=== PATIENT | female | born 1995 | race American Indian/Alaskan Native ===

== ENCOUNTER 2020-01-02 21:34 | Emergency (ER) | payer SELFPAY ==
--- NOTE | 2020-01-02 22:08 | Event Note ---
ED Screening Note ED Screening Note: n/v that began two days ago unable to tolerate PO intake states she has abd pain LNMP: august 2020 has not seen anyone for this small amount of vaginal spotting PMHx asthma allergy: none /P:2/A:0 This initial assessment/diagnostic orders/clinical plan/treatment(s) is/are subject to change based on patients health status, clinical progression and re- assessment by fellow clinical providers in the ED. Further treatment and workup at subsequent clinical providers discretion. Patient/guardian urged not to elope from the ED as their condition may be serious if not clinically assessed and managed. Initial orders include: labs, UA, US
[2020-01-02 23:39] LABS: Bilirubin,Urine NEG (Negative); Blood,Urine NEG (Negative); Color,Urine Yellow (Yellow); Mucus,Urine 2+ /HPF; Protein,Urine <15 mg/dL mg/dL (Negative)
[2020-01-02 23:43] LABS: Basophils # (Auto) 0.1 K/mm3 (0.0-0.1); Basophils % (Auto) 0.6 % (0.0-1.8); Eosinophils # (Auto) 0.1 K/mm3 (0.0-0.4); Hematocrit 32.6 % (30.3-42.9); Hemoglobin 11.5 gm/dl (10.1-14.3); Lymphocytes % (Auto) 31.5 % (13.4-35.0); Mean Corpuscular HGB Conc 35 % (30-34); Mean Corpuscular Volume 88 fl (79-97); Monocytes # (Auto) 0.5 K/mm3 (0.0-0.8); Monocytes % (Auto) 5.1 % (0.0-7.3); Platelet Count 242 K/mm3 (140-440); Red Blood Count 3.71 M/mm3 (3.65-5.03); Red Cell Distribution Width 13.6 % (13.2-15.2)
[2020-01-03 00:06] LABS: Alanine Aminotransferase 11 units/L (7-56); Albumin 3.8 g/dL (3.9-5); BUN/Creatinine Ratio 15; Blood Urea Nitrogen 6 mg/dL (7-17); Calcium 9.3 mg/dL (8.4-10.2); Hemolysis Index 6
[2020-01-03] MEDS ORDERED: ONDANSETRON 4 MG/2 ML INJ IV ONE (00:29)
[2020-01-03] MEDS ORDERED: FAMOTIDINE 20 MG/2 ML INJ IV ONE (00:29)
[2020-01-03] MEDS ORDERED: ACETAMINOPHEN 500 MG TAB PO ONE (00:29)
[2020-01-03] MEDS ORDERED: SODIUM CHLORIDE 0.9% 1000 ML 1,000 ML IV ONE (00:29)
[2020-01-03 01:20] VITALS: BP 111/74
--- NOTE | 2020-01-03 03:15 | Emergency Department Report ---
ED N/V/D HPI - General Chief complaint: Abdominal Pain Stated complaint: N/V Time Seen by Provider: 01/02/20 22:06 Source: patient, EMS Mode of arrival: Ambulatory Limitations: No Limitations - History of Present Illness Initial comments: Patient is a A0 24-year-old -[place] female who is approximately 13 weeks gestation and who presents to the ED with complaint of acute onset intractable nausea and vomiting for the last 3 days. Patient states that she has not been able to keep anything down because of persistent nausea and vomiting. Patient also complains of mild diffuse abdominal pain. Patient denies fever, chills, cough, chest pain, sore throat, dizziness, syncope, lightheadedness, dysuria, urinary frequency and urgency, vaginal bleeding, vaginal discharge, diarrhea, low back pain or headache. Patient states that she try to drink water or david july but none of these stayed in. MD complaint: nausea, vomiting -: Sudden, days(s) (3) Description of Vomiting: food contents, watery Description of Diarrhea: other (None) Associated Abdominal Pain: Yes (Mildly epigastric) Location: epigastric Radiation: none Severity: severe Pain Scale: 7 Quality: aching, dull Consistency: intermittent Improves with: none Worsens with: eating, vomiting Context: other () Associated Symptoms: denies other symptoms, myalgias, loss of appetite, malaise, nausea/vomiting. denies: chest pain, cough, diaphoresis, fever/chills, headaches, rash, dysuria, shortness of breath, syncope, weakness - Related Data Previous Rx's Medication Instructions Recorded Last Taken Type Acetaminophen [Mapap] 500 mg PO Q6H PRN #30 tablet 01/03/20 Unknown Rx Famotidine [Pepcid] 20 mg PO Q12H #30 tablet 01/03/20 Unknown Rx Promethazine [Phenergan SUPPOS] 25 mg NC Q6HR PRN #15 supp.rect 01/03/20 Unknown Rx Promethazine [Phenergan] 25 mg PO Q6HR PRN #30 tab 01/03/20 Unknown Rx Allergies Allergy/AdvReac Type Severity Reaction Status Date / Time No Known Allergies Allergy Verified 01/02/20 21:50 ED Review of Systems ROS: Stated complaint: N/V Other details as noted in HPI Constitutional: denies: chills, fever Eyes: denies: eye pain, eye discharge, vision change ENT: denies: ear pain, throat pain Respiratory: denies: cough, shortness of breath, wheezing Cardiovascular: denies: chest pain, palpitations Endocrine: no symptoms reported Gastrointestinal: nausea, vomiting. denies: abdominal pain, diarrhea Genitourinary: denies: urgency, dysuria, discharge Musculoskeletal: denies: back pain, joint swelling, arthralgia Skin: denies: rash, lesions Neurological: denies: headache, weakness, paresthesias Psychiatric: denies: anxiety, depression Hematological/Lymphatic: denies: easy bleeding, easy bruising ED Past Medical Hx - Past Medical History Previous Medical History?: No - Surgical History Past Surgical History?: No - Social History Smoking Status: Never Smoker Substance Use Type: None - Medications Home Medications: Home Medications Medication Instructions Recorded Confirmed Last Taken Type Acetaminophen [Mapap] 500 mg PO Q6H PRN #30 tablet 01/03/20 Unknown Rx Famotidine [Pepcid] 20 mg PO Q12H #30 tablet 01/03/20 Unknown Rx Promethazine [Phenergan SUPPOS] 25 mg NC Q6HR PRN #15 supp.rect 01/03/20 Unknown Rx Promethazine [Phenergan] 25 mg PO Q6HR PRN #30 tab 01/03/20 Unknown Rx ED Physical Exam - General Limitations: No Limitations General appearance: alert, in no apparent distress - Head Head exam: Present: atraumatic, normocephalic, normal inspection - Eye Eye exam: Present: normal appearance, PERRL, EOMI Pupils: Present: normal accommodation - ENT ENT exam: Present: normal exam, normal orophraynx, mucous membranes moist, TM's normal bilaterally, normal external ear exam - Neck Neck exam: Present: normal inspection, full ROM. Absent: tenderness - Respiratory Respiratory exam: Present: normal lung sounds bilaterally. Absent: respiratory distress, wheezes, rhonchi, chest wall tenderness, accessory muscle use, decreased breath sounds, prolonged expiratory - Cardiovascular Cardiovascular Exam: Present: regular rate, normal rhythm, normal heart sounds. Absent: systolic murmur, diastolic murmur, rubs, gallop - GI/Abdominal GI/Abdominal exam: Present: soft, normal bowel sounds. Absent: tenderness, guarding, hyperactive bowel sounds, hypoactive bowel sounds - Extremities Exam Extremities exam: Present: normal inspection, full ROM, normal capillary refill - Back Exam Back exam: Present: normal inspection, full ROM. Absent: tenderness, CVA tenderness (L), muscle spasm - Neurological Exam Neurological exam: Present: alert, oriented X3, CN II-XII intact, normal gait, reflexes normal - Psychiatric Psychiatric exam: Present: normal affect, normal mood - Skin Skin exam: Present: warm, dry, intact, normal color. Absent: rash ED Course Vital Signs 01/02/20 01/02/20 01/03/20 21:54 22:12 00:39 Temperature 98.8 F 98.8 F Pulse Rate 90 95 H Respiratory 18 18 18 Rate Blood Pressure 118/84 118/84 Blood Pressure [Left] O2 Sat by Pulse 100 100 Oximetry 01/03/20 01:19 Temperature 97.8 F Pulse Rate 78 Respiratory 18 Rate Blood Pressure Blood Pressure 111/74 [Left] O2 Sat by Pulse 100 Oximetry ED Medical Decision Making - Lab Data Result diagrams: 01/02/20 23:27 01/02/20 23:27 - Medical Decision Making This is a 24-year-old female who is A0 and is approximately 13 weeks gestation and who presented to the ED with intractable nausea and vomiting with mild abdominal pain for the last 3 days. In the ED, patient is alert and oriented x3 and is not in distress with normal vital signs. Patient was treated in the ED for nausea and vomiting, also given pain medication and antacids. Lab test results were reviewed and are all nonactionable[place] [id number] and urinalysis was unremarkable. Patient was also treated with normal saline 1 L IV bolus. On reevaluation, patient nausea and vomiting and pain resolved. Patient is able to keep oral fluids in the ED competently with no vomiting or nausea. Patient was discharged home on antiemetics and antacids and was advised to take Tylenol as needed for pain and was given a referral to the [facility] physician Dr. Posada follow-up in 3 to 5 days. Patient was also advised to return to the ED immediately if symptoms get worse. - Differential Diagnosis Dehydration; gastroenteritis; Hyperemesis gravidarum; UTI; Critical care attestation.: If time is entered above; I have spent that time in minutes in the direct care of this critically ill patient, excluding procedure time. ED Disposition Clinical Impression: Hyperemesis gravidarum Disposition: DC- TO HOME OR SELFCARE Is pt being admited?: No Does the pt Need Aspirin: No Condition: Stable Instructions: Abdominal Pain (ED) Additional Instructions: Maintain oral fluid intake for 12-24 hours, take medications with food, drink plenty of fluids and follow up with your [facility] in the next 3-5 days for reevaluation. Return to the ED immediately if symptoms get worse. Prescriptions: Acetaminophen [Mapap] 500 mg PO Q6H PRN #30 tablet PRN Reason: Pain , Severe (7-10) Famotidine [Pepcid] 20 mg PO Q12H #30 tablet Promethazine [Phenergan] 25 mg PO Q6HR PRN #30 tab PRN Reason: Nausea Promethazine [Phenergan SUPPOS] 25 mg NC Q6HR PRN #15 supp.rect PRN Reason: Nausea Referrals: JIGNA POSADA MD [Staff Physician] - 3-5 Days Time of Disposition: 03:19 Print Language: [place]
== END 2020-01-03 03:30 | disposition home or self-care (01) ==
LOC: ED 21:34
DX: O21.0 Mild hyperemesis gravidarum (principal)
CPT/HCPCS: 36415; 80053; 81001; 84702; 85025; 96361; 96374; 99284; J2405; J7030